=== PATIENT | female | born 1965 | race Caucasian/White ===

== ENCOUNTER → 2019-01-16 | Outpatient (CLI) | payer BC ==
[~2019-01-16] MED LIST: PROTONIX 40MG T40 MG PO; ZESTRIL 5MG5 MG PO
== END ==
LOC: MC.RAD 10:04
DX: Z12.31 Encounter for screening mammogram for malignant neoplasm of breast (principal)

== ENCOUNTER → 2020-02-14 | Outpatient (CLI) | payer BC | LOC: COL.RAD 14:33 | DX: N83.201 Unspecified ovarian cyst, right side (principal) | CPT/HCPCS: A9585 ==

== ENCOUNTER 2022-05-18 16:15 | Inpatient (IN) | payer BC ==
[~2022-05-18] VITALS: Ht 177.8 cm; Wt 146.6 kg
[2022-05-18] VITALS (137 sets, daily range): BP systolic 146; BP diastolic 94; PULSE 92; TEMP 98; O2SAT 90–99
[~2022-05-18 16:15] MED LIST changes: -ELIQUIS 5MG PO; -PRINIVIL10 MG PO; -TYLENOL 500MG500 MG PO
[2022-05-18 17:30] LABS: BASO # 0.1 K/mm3 (0.0-0.2); BASO % 0.7 % (0.0-2.0); EOS # 0.2 K/mm3 (0.0-0.7); EOS % 2.8 % (0.0-4.0); GRAN # 5.8 K/mm3 (1.4-6.5); GRAN % 66.1 % (42.2-75.2); HEMATOCRIT 39.1 % (37.0-47.0); HEMOGLOBIN 13.2 g/dl (12.5-16.0); LYMPH % 22.7 % (20.0-51.0); MEAN CELL VOLUME 94 fl (80.0-100.0); MEAN CORPUSCULAR HEMOGLOBIN 32 pg (27-31); MEAN CORPUSCULAR HGB CONC 34 g/dl (33.0-37.0); MEAN PLATELET VOLUME 9.1 fl (7.4-10.4); MONO # 0.6 K/mm3 (0.1-0.6); MONO % 6.9 % (1.7-9.3); PLATELET COUNT 259 K/mm3 (130-400); RED BLOOD COUNT 4.18 M/mm3 (4.10-5.30); REDCELL DISTRIBUTION WIDTH-CV 14.8 % (11.5-14.5)
[2022-05-18 17:42] LABS: PROTHROMBIN TIME 11.7 SECONDS (9.7-12.8)
[2022-05-18 17:44] LABS: PARTIAL THROMBOPLASTIN TIME 30.8 SECONDS (26.0-37.0)
[2022-05-18 17:48] LABS: ALBUMIN 3.5 gm/dL (3.5-5.0); BILIRUBIN,TOTAL 0.8 mg/dL (0.2-1.2); CALCIUM 9.3 mg/dL (8.4-10.2); CREATININE, serum 0.77 mg/dL (0.57-1.11); POTASSIUM 4.1 mmol/L (3.5-4.5); TOTAL PROTEIN 6.8 gm/dL (6.2-8.1)
[2022-05-18 17:55] LABS: TROPONIN-I 0.051 ng/mL (0.00-0.033)
[2022-05-18] MEDS ORDERED: PRINIVIL10 MG PO (20:06)
--- NOTE | 2022-05-18 20:45 | NUR ---
PT RECEIEVED FROM ER VIA STRETCHER. AMBULATED TO ICU BED, CONNECTED TO MONITORING. PT CURRENTLY ON 2L NC, NO ACUTE DISTRESS. DENIES PAIN. REPORT SOA WITH MUCH ACTIVITY OR TALKING, BUT MANAGEABLE. HEPARIN CURRENTLY INFUSING TO R WRIST PIV AT 2300 UN/HR. DISCUSSED POC WITH PT, INCLUDING LAB DRAWS AND POC. VERBALIZES UNDERSTANDING. WILL CONTINUE TO MONITOR.
[2022-05-19] VITALS (1286 sets, daily range): BP systolic 121–146; BP diastolic 65–94; PULSE 69–90; TEMP 97.4–98.3; O2SAT 83–100
[2022-05-19 03:20] LABS: BASO # 0.1 K/mm3 (0.0-0.2); BASO % 0.8 % (0.0-2.0); EOS # 0.3 K/mm3 (0.0-0.7); EOS % 3.6 % (0.0-4.0); GRAN # 5.4 K/mm3 (1.4-6.5); GRAN % 64.1 % (42.2-75.2); HEMOGLOBIN 12.4 g/dl (12.5-16.0); LYMPH % 24.3 % (20.0-51.0); MEAN CELL VOLUME 94 fl (80.0-100.0); MEAN CORPUSCULAR HEMOGLOBIN 32 pg (27-31); MEAN CORPUSCULAR HGB CONC 34 g/dl (33.0-37.0); MEAN PLATELET VOLUME 9.2 fl (7.4-10.4); MONO # 0.5 K/mm3 (0.1-0.6); MONO % 6.4 % (1.7-9.3); PLATELET COUNT 228 K/mm3 (130-400); RED BLOOD COUNT 3.94 M/mm3 (4.10-5.30); REDCELL DISTRIBUTION WIDTH-CV 14.7 % (11.5-14.5)
[2022-05-19 03:37] LABS: CALCIUM 8.6 mg/dL (8.4-10.2); CREATININE, serum 0.69 mg/dL (0.57-1.11); MAGNESIUM 2.1 mg/dL (1.6-2.6); POTASSIUM 4.3 mmol/L (3.5-4.5)
--- NOTE | 2022-05-19 08:30 | NUR ---
Sitting on edge of bed and eating breakfast. Alert and oriented and denies any concerns or complaints. Call light left within reach.
--- NOTE | 2022-05-19 10:20 | NUR ---
Initial visit; Patient states she is doing well and prefers to speak of being affiliated with the [facility] and would like to start a program that would honor persons who are hospitalized. recommended that she speak with Rojelio Prince who is our BILINGUAL SALES CONSULTANT and get his opinion. will then follow his lead. welcomed [place] and will keep her in prayer for continued healing.
--- NOTE | 2022-05-19 20:30 | NUR ---
ASSESSMENT COMPLETE AND CHARTED. HEPARIN GTT STOPPED AND ELIQUIS GIVEN. DENIES NEEDS AT THIS TIME. CALL LIGHT IN REACH.
[2022-05-20] VITALS (1036 sets, daily range): BP systolic 120–149; BP diastolic 72–100; PULSE 70–105; TEMP 97–98; O2SAT 82–99
--- NOTE | 2022-05-20 06:20 | NUR ---
PATIENT HAD UNEVENTFUL NIGHT. RESTING IN BED THIS AM.
[2022-05-20 07:01] LABS: BASO # 0.1 K/mm3 (0.0-0.2); BASO % 0.8 % (0.0-2.0); EOS # 0.3 K/mm3 (0.0-0.7); EOS % 2.9 % (0.0-4.0); GRAN # 5.5 K/mm3 (1.4-6.5); GRAN % 64.4 % (42.2-75.2); HEMATOCRIT 40.8 % (37.0-47.0); HEMOGLOBIN 13.3 g/dl (12.5-16.0); LYMPH % 23.8 % (20.0-51.0); MEAN CELL VOLUME 96 fl (80.0-100.0); MEAN CORPUSCULAR HEMOGLOBIN 31 pg (27-31); MEAN CORPUSCULAR HGB CONC 33 g/dl (33.0-37.0); MEAN PLATELET VOLUME 9.3 fl (7.4-10.4); MONO # 0.6 K/mm3 (0.1-0.6); MONO % 7.2 % (1.7-9.3); PLATELET COUNT 259 K/mm3 (130-400); RED BLOOD COUNT 4.25 M/mm3 (4.10-5.30)
--- NOTE | 2022-05-20 07:05 | NUR ---
Report given to LAVONNE Jack
[2022-05-20 07:17] LABS: CALCIUM 9.5 mg/dL (8.4-10.2); CREATININE, serum 0.79 mg/dL (0.57-1.11); POTASSIUM 4.5 mmol/L (3.5-4.5)
--- NOTE | 2022-05-20 08:00 | NUR ---
Awake and alert and in no distress. Denies any concerns or complaints at this time. Call light left within reach.
--- NOTE | 2022-05-20 14:13 | NUR ---
hide mill worker met with patient to discuss discharge planning. Patient states she resides with her mother and is independent with her activies of daily living. Patient states she has [employer] insurance through her employment. Worker provided patient, per her requests, advance directive information. Patient later completed these documents. Patient stated that her primary care provider was Dr Erickson and that she denied concerns related to returning home upon discharge. Discharge plan is to return home.
--- NOTE | 2022-05-20 15:04 | NUR ---
PT DOES NOT REQUIRE O2 WITH AMBULATION
[2022-05-21] VITALS (1153 sets, daily range): BP systolic 128–152; BP diastolic 76–96; PULSE 73–83; TEMP 97.8–98.1; O2SAT 75–96
[2022-05-21 05:32] LABS: BASO # 0.1 K/mm3 (0.0-0.2); BASO % 0.7 % (0.0-2.0); EOS # 0.2 K/mm3 (0.0-0.7); EOS % 2.4 % (0.0-4.0); GRAN # 5.3 K/mm3 (1.4-6.5); GRAN % 65.3 % (42.2-75.2); HEMATOCRIT 37.7 % (37.0-47.0); HEMOGLOBIN 12.5 g/dl (12.5-16.0); LYMPH # 1.8 K/mm3 (1.2-3.4); LYMPH % 22.9 % (20.0-51.0); MEAN CELL VOLUME 95 fl (80.0-100.0); MEAN CORPUSCULAR HEMOGLOBIN 31 pg (27-31); MEAN CORPUSCULAR HGB CONC 33 g/dl (33.0-37.0); MEAN PLATELET VOLUME 9.3 fl (7.4-10.4); MONO # 0.6 K/mm3 (0.1-0.6); MONO % 7.8 % (1.7-9.3); PLATELET COUNT 259 K/mm3 (130-400); RED BLOOD COUNT 3.99 M/mm3 (4.10-5.30); REDCELL DISTRIBUTION WIDTH-CV 14.8 % (11.5-14.5)
[2022-05-21 05:49] LABS: CREATININE, serum 0.77 mg/dL (0.57-1.11); POTASSIUM 4.3 mmol/L (3.5-4.5)
--- NOTE | 2022-05-21 07:46 | NUR ---
REPORT RECEIVED FROM LAVONNE FAYE; PATIENT CURRENTLY UP AND DOING A.M. CARE IN ROOM INDEPENDENTLY. PATIENT'S VITAL SIGNS ARE ALL WITHIN NORMAL LIMITS; O2 SATS ARE SLIGHTLY BELOW NORMAL WHEN PATIENT NOT WEARING OXYGEN WHICH IS CURRENTLY RUNNING AT 2LPM VIA FL. PATIENT WILL GO TO DAY SCAN FIRST THING THIS MORNING; PATIENT HAS NO FLUIDS/MEDS RUNNING THROUGH HER PERIPHERAL LINE.
[2022-05-21 10:38] LABS: PARTIAL THROMBOPLASTIN TIME 34.5 SECONDS (26.0-37.0)
[2022-05-22] VITALS (591 sets, daily range): BP systolic 110–150; BP diastolic 72–93; PULSE 67–86; TEMP 97.7–98.2; O2SAT 78–97
[2022-05-22 06:57] LABS: HEMATOCRIT 39.7 % (37.0-47.0); HEMOGLOBIN 13.4 g/dl (12.5-16.0); MEAN CELL VOLUME 94 fl (80.0-100.0); MEAN CORPUSCULAR HEMOGLOBIN 32 pg (27-31); MEAN CORPUSCULAR HGB CONC 34 g/dl (33.0-37.0); MEAN PLATELET VOLUME 9.4 fl (7.4-10.4); PLATELET COUNT 270 K/mm3 (130-400); RED BLOOD COUNT 4.23 M/mm3 (4.10-5.30); REDCELL DISTRIBUTION WIDTH-CV 14.6 % (11.5-14.5)
[2022-05-22 07:18] LABS: CALCIUM 9.3 mg/dL (8.4-10.2); CREATININE, serum 0.76 mg/dL (0.57-1.11); POTASSIUM 4.4 mmol/L (3.5-4.5)
--- NOTE | 2022-05-22 08:15 | NUR ---
PATIENT IS AWAKE AND ALERT SITTING ON THE EDGE OF BED. PATIENT IN NO DISTRESS AND VITAL SIGNS STABLE AT THIS TIME. MORTGAGE CONSULTANT RNS CURRENTLY AT BEDSIDE TO PREPARE PATIENT FOR HEART CATH. LEFT UNIT AT 0818.
--- NOTE | 2022-05-22 08:44 | NUR ---
SEE MERGE FOR VITAL SIGNS, ASSESSMENTS, MEDICATIONS, AND INTERVENTIONS.
--- NOTE | 2022-05-22 09:30 | NUR ---
PATIENT ARRIVED ON UNIT FROM BOAT OUTFITTING SUPERVISOR. PATIENT IS ALERT AND ORIENTATED PER HER BASELINE. VITAL SIGNS STABLE. RIGHT GROIN AND RIGHT RADIAL SITES ASSESSED WITH BOAT OUTFITTING SUPERVISOR RNS AT BEDSIDE. TR BAND IN PLACE, SITE SOFT AND NON TENDER TO TOUCH. GRION SITE DRESSING CLEAN AND INTACT, SITE IS ALSO SOFT AND NON TENDER TO TOUCH. RADIAL AND PEDAL PULSES +2. PUT PATIENT IN REVERSE TRANDELENBURG AND INSTRUCTED PATIET TO LAY FLAT AND NOT PUT WEIGHT ON WRIST.
[2022-05-22] MEDS ORDERED: TYLENOL 500MG500 MG PO (10:59)
[2022-05-22] MEDS ORDERED: ELIQUIS 5MG PO (11:00)
--- NOTE | 2022-05-22 15:24 | NUR ---
Up for an exercise oximetry test with RT. 02 maintained 92% on RA. Tolerated ambulation well. Will continue to monitor.
--- NOTE | 2022-05-22 16:55 | NUR ---
ASSESSED BOTH RADIAL AND GROIN HEART CATH SITES AND THEY WERE SOFT, NO BLEEDING OR HEMATOMA AT SITE. TOOK OFF TR BAND AND PLACED A BAND-AID ON THE SITE. TOOK OFF TEGADERM ON GROIN SITE AND PLACED A NEW GAUZE AND TEGADERM ON SITE. GAVE PATIENT VERBAL AND WRITTEN DISCHARGE TEACHING. PATIENT IS ALERT AND ORIENTATED. REMOVED IV FROM LEFT HAND AND CATHETER WAS INTACT UPON REMOVAL. ASSISTED PATIENT TO THE ER ENTRANCE IN WHEEL CHAIR AND PATIENT'S FRIEND TO PICK HER UP.
== END 2022-05-22 16:55 | disposition home or self-care (01) | DRG 175 ==
LOC: COL.ER 16:15 → ICU 18:45 → EDBEDREQ 19:54 → ICU 05-22 09:18
PROVIDERS: Physician Assistant; Student in an Organized Health Care Education/Training Program; ADMIT Student in an Organized Health Care Education/Training Program
PROC: 4A023N7 Measurement of Cardiac Sampling and Pressure, Left Heart, Percutaneous Approach (ICD-10-PCS; principal; 2022-05-22)
PROC: B2111ZZ Fluoroscopy of Multiple Coronary Arteries using Low Osmolar Contrast (ICD-10-PCS; 2022-05-22)
DX: I26.99 Other pulmonary embolism without acute cor pulmonale (principal); J96.01 Acute respiratory failure with hypoxia; I21.A1 Myocardial infarction type 2; I10 Essential (primary) hypertension; E78.5 Hyperlipidemia, unspecified; I27.20 Pulmonary hypertension, unspecified; R73.03 Prediabetes; Z90.89 Acquired absence of other organs; Z88.0 Allergy status to penicillin; Z86.718 Personal history of other venous thrombosis and embolism; Z72.89 Other problems related to lifestyle; Z79.01 Long term (current) use of anticoagulants
CPT/HCPCS: A9500; C1760; C1769; C1894; J1644; J2250; J2785; J3010; J7030; Q9967

== ENCOUNTER → 2022-05-18 | Outpatient (CLI) | payer BC ==
[~2022-05-18] MED LIST changes: +ELIQUIS 5MG PO; +PRINIVIL10 MG PO; +TYLENOL 500MG500 MG PO
[2022-05-19] VITALS (27 sets, daily range): O2SAT 92–98
[2022-05-20] VITALS (222 sets, daily range): O2SAT 86–97
== END ==
LOC: ZCOL.LAB 15:22
DX: R06.02 Shortness of breath (principal)

== ENCOUNTER 2023-08-20 11:00 | Outpatient (RCR) | payer BC ==
[~2023-08-20 11:00] MED LIST changes: +ELIQUIS 5MG PO; +PRINIVIL10 MG PO; +TYLENOL 500MG500 MG PO
== END 2023-09-19 | disposition home or self-care (01) ==
LOC: WSPT
DX: M67.813 Other specified disorders of tendon, right shoulder (principal); M51.9 Unspecified thoracic, thoracolumbar and lumbosacral intervertebral disc disorder

== ENCOUNTER 2023-09-17 11:15 | Outpatient (RCR) | payer BC | END 2023-09-19 | disposition home or self-care (01) | LOC: WSPT | DX: M75.101 Unspecified rotator cuff tear or rupture of right shoulder, not specified as traumatic (principal); M75.21 Bicipital tendinitis, right shoulder ==

== ENCOUNTER → 2023-10-20 | Outpatient (RCR) | payer BC | END | disposition home or self-care (01) | LOC: WSPT | DX: M67.813 Other specified disorders of tendon, right shoulder (principal); M75.21 Bicipital tendinitis, right shoulder; M75.101 Unspecified rotator cuff tear or rupture of right shoulder, not specified as traumatic; Z98.890 Other specified postprocedural states ==

== ENCOUNTER 2023-11-17 11:15 | Outpatient (RCR) | payer BC | END 2023-11-18 | disposition home or self-care (01) | LOC: WSPT | DX: M67.813 Other specified disorders of tendon, right shoulder (principal); Z98.890 Other specified postprocedural states ==

== ENCOUNTER 2023-12-10 10:30 | Outpatient (RCR) | payer BC | END 2023-12-19 | disposition home or self-care (01) | LOC: WSPT | DX: M67.813 Other specified disorders of tendon, right shoulder (principal); M25.511 Pain in right shoulder; Z98.890 Other specified postprocedural states ==

== ENCOUNTER 2024-06-28 16:46 | Emergency (ER) | payer BC ==
[~2024-06-28] VITALS: Ht 177.8 cm; Wt 140.9 kg
[2024-06-28 16:52] VITALS: TEMP 97.9
[2024-06-28 19:13] LABS: BASO # 0.1 K/mm3 (0.0-0.2); BASO % 0.6 % (0.0-2.0); EOS # 0.1 K/mm3 (0.0-0.7); EOS % 1.1 % (0.0-4.0); GRAN # 6.9 K/mm3 (1.4-6.5); GRAN % 72.2 % (42.2-75.2); HEMATOCRIT 40.2 % (37.0-47.0); HEMOGLOBIN 13.5 g/dl (12.5-16.0); LYMPH # 1.7 K/mm3 (1.2-3.4); LYMPH % 17.8 % (20.0-51.0); MEAN CELL VOLUME 97 fl (80.0-100.0); MEAN CORPUSCULAR HEMOGLOBIN 33 pg (27-31); MEAN CORPUSCULAR HGB CONC 34 g/dl (33.0-37.0); MEAN PLATELET VOLUME 8.9 fl (7.4-10.4); MONO # 0.7 K/mm3 (0.1-0.6); MONO % 7.7 % (1.7-9.3); PLATELET COUNT 295 K/mm3 (130-400); RED BLOOD COUNT 4.16 M/mm3 (4.10-5.30); REDCELL DISTRIBUTION WIDTH-CV 15.2 % (11.5-14.5)
[2024-06-28 19:29] LABS: ALANINE AMINOTRANSFERASE 137 U/L (0-55); ALBUMIN 3.9 g/dL (3.4-4.8); ALKALINE PHOSPHATASE 107 U/L (40-150); ANION GAP 13 mmol/L (7-16); AST,SGOT 193 U/L (5-34); BILIRUBIN,TOTAL 1.2 mg/dL (0.2-1.2); BLOOD UREA NITROGEN 13 mg/dL (10-20); CALCIUM 9.8 mg/dL (8.4-10.2); CHLORIDE 106 mEq/L (98-107); CREATININE, serum 0.81 mg/dL (0.57-1.11); GLUCOSE 118 mg/dL (70-99); LIPASE 39 U/L (8-78); POTASSIUM 3.9 mEq/L (3.5-4.5); SODIUM 142 mEq/L (136-145); TOTAL PROTEIN 7.4 g/dl (6.2-8.1)
[2024-06-28] MEDS ORDERED: Ondansetron 4 MG/2 ML VIAL IV ONE (19:30)
[2024-06-28 19:36] LABS: TROPONIN-I < 0.010 ng/mL (0.00-0.033)
[2024-06-28] MEDS ORDERED: Morphine 4 MG/ML VIAL IV ONE (20:15)
[2024-06-28] MEDS ORDERED: Iohexol 300 - 100 ML VIAL IV ONE (21:14)
[2024-06-28] MEDS ORDERED: NS 100 ML IV ONE (21:15)
[2024-06-28 21:17] LABS: URINE APPEARANCE CLEAR (CLEAR/HAZY); URINE BLOOD NEGATIVE (NEGATIVE); URINE COLOR YELLOW (YELLOW); URINE GLUCOSE NEGATIVE (NEGATIVE); URINE KETONE TRACE (NEGATIVE); URINE NITRATE NEGATIVE (NEGATIVE); URINE PROTEIN(semi-quant) NEGATIVE (NEGATIVE)
[2024-06-28 21:20] LABS: COLLECTION METHOD CLEAN CATCH
[2024-06-28 21:35] VITALS: BP 137/82; PULSE 90
== END 2024-06-28 21:50 | disposition home or self-care (01) ==
LOC: COL.ER 16:46
PROVIDERS: Nurse Practitioner Primary Care
DX: R10.11 Right upper quadrant pain (principal); R10.12 Left upper quadrant pain; R10.13 Epigastric pain; R79.89 Other specified abnormal findings of blood chemistry; R11.0 Nausea
CPT/HCPCS: J2405; Q9967

== ENCOUNTER 2024-08-16 10:30 | Outpatient (RCR) | payer BC | END 2024-08-19 | LOC: WSPT | DX: Z96.652 Presence of left artificial knee joint (principal) ==